=== PATIENT | male | born 1990 | race Caucasian/White ===

== ENCOUNTER 2016-12-26 11:03 | Inpatient (IN) | payer MEDICAID, OTHER ==
[~2016-12-26] VITALS: Ht 180.3 cm; Wt 75.3 kg
[2016-12-26] MEDS ORDERED: HYDR-3114 PO (11:45)
[2016-12-26] MEDS ORDERED: SERT100T12 PO (11:45)
[2016-12-26] MEDS ORDERED: ALBU0.424 IH (11:45)
[2016-12-26 12:07] LABS: BASOPHILS % (AUTO) 0.3 % (0.0-2.0); EOSINOPHILS % (AUTO) 0.9 % (1.0-6.0); HEMATOCRIT 44.3 % (41-53); LYMPHOCYTES # (AUTO) 1.2 K/uL (1.0-4.8); LYMPHOCYTES % (AUTO) 18.5 % (22.0-44.0); MEAN CORPUSCULAR HEMOGLOBIN 28.8 pg (26.0-34.0); MEAN CORPUSCULAR VOLUME 85 fL (80-100); MONOCYTES # (AUTO) 0.4 K/uL (0.1-1.0); MONOCYTES % (AUTO) 5.7 % (2.0-9.0); NEUTROPHILS # (AUTO) 4.7 K/uL (1.8-7.7); NEUTROPHILS % (AUTO) 74.6 % (40.0-70.0); PLATELET COUNT (AUTO) 219 K/uL (150-450); RED BLOOD CELL COUNT(AUTO) 5.23 MIL/uL (4.50-5.90); RED CELL DISTRIBUTION WIDTH 13.6 % (11.5-14.5); WHITE BLOOD COUNT (AUTO) 6.3 K/uL (4.5-11.0)
[2016-12-26 12:09] LABS: ANION GAP 11 mmol/L (8-16); CALCIUM, TOTAL 9.2 mg/dL (8.8-10.5); CARBON DIOXIDE 27 mmol/L (22-29); CHLORIDE 106 mmol/L (98-107); CREATININE 1.04 mg/dL (0.60-1.30); GLOMERULAR FILTR. RATE CALC > 60 mL/min (>60); POTASSIUM 3.8 mmol/L (3.5-5.1); SODIUM SERUM 144 mmol/L (136-145); UREA NITROGEN, BLOOD 10 mg/dL (7-18)
[2016-12-26 12:14] LABS: ALANINE AMINOTRANSFERASE 28 U/L (12-78); ALBUMIN 4.2 g/dL (3.4-5.0); ASPARTATE AMINOTRANSFERASE 14 U/L (15-37); BILIRUBIN,TOTAL 0.4 mg/dL (0.1-1.0); TOTAL PROTEIN, SERUM 7.5 g/dL (6.4-8.2)
[2016-12-26] MEDS ORDERED: HALOPERIDOL 5 MG TABLET PO PRN (12:15)
[2016-12-26 13:36] VITALS: BP 130/74
[2016-12-26] MEDS ORDERED: ALBUTEROL SULFATE HFA 90 MCG/PUFF 8 GM INHALER IH PRN (14:15)
[2016-12-26] MEDS ORDERED: IBUPROFEN 600 MG TABLET PO PRN (14:15)
[2016-12-26] MEDS ORDERED: ACETAMINOPHEN 325 MG TABLET PO PRN (14:15)
[2016-12-26 16:00] VITALS: BP 127/91
[2016-12-27 08:45] VITALS: BP 113/66
[2016-12-27] MEDS: LORazepam 2 MG TABLET PO PRN ×2 (10:42→18:37)
[2016-12-27 19:16] VITALS: BP 112/62
[2016-12-27] MEDS: ZOLPIDEM TARTRATE 10 MG TABLET PO PRN (22:09)
[2016-12-28 08:46] VITALS: BP 132/94
[2016-12-28] MEDS: SERTRALINE HCL 100 MG TABLET PO SCH (08:59)
[2016-12-28] MEDS: LORazepam 2 MG TABLET PO PRN (13:20)
[2016-12-28 16:30] VITALS: BP 128/62
[2016-12-28] MEDS: ZOLPIDEM TARTRATE 10 MG TABLET PO PRN (20:38)
[2016-12-29 06:55] LABS: CHOL/HDL RATIO 5.4 (4.2-7.3)
[2016-12-29] MEDS: SERTRALINE HCL 100 MG TABLET PO SCH (08:51)
[2016-12-29 10:18] VITALS: BP 140/80
[2016-12-29] MEDS ORDERED: SERT100T12 PO (11:50)
== END 2016-12-29 14:30 | disposition home or self-care (01) | DRG 751 ==
LOC: EEVIPCON 11:05 → EMS 11:05 → 3EI 12:50 → EMS 13:10
PROVIDERS: ADMIT Psychiatry & Neurology Child & Adolescent Psychiatry; ATTEND Psychiatry & Neurology Child & Adolescent Psychiatry
DX: F33.2 Major depressive disorder, recurrent severe without psychotic features (principal); R45.851 Suicidal ideations; F41.9 Anxiety disorder, unspecified; J45.909 Unspecified asthma, uncomplicated; F12.90 Cannabis use, unspecified, uncomplicated; R45.87 Impulsiveness; F60.3 Borderline personality disorder; Z63.9 Problem related to primary support group, unspecified
CPT/HCPCS: 99285; G0480